=== PATIENT | female | born 1980 ===

== ENCOUNTER 2017-04-25 09:53 | Day surgery (SDC) | payer OTHER ==
[2017-04-09 09:42] VITALS: BMI 34.3
[2017-04-25 10:37] VITALS: O2SAT 100
[2017-04-25] MEDS ORDERED: Lactated Ringer's 1,000 ML IV ONE (17:30)
[2017-04-25] MEDS ORDERED: Propofol 10 mg/ml Inj (20 ML) ONE (17:36)
[2017-04-25] MEDS ORDERED: Midazolam 2 MG/2 ML VIAL ONE (17:36)
--- NOTE | 2017-04-25 18:02 | PCM.SURG1 ---
Surgeon's Initial Post Op Note - Surgeon's Notes Surgeon: Dr Murillo Manager Of School: Dr Guy Type of Anesthesia: General LMA Anesthesia Administered By: Dr. Guy Pre-Operative Diagnosis: 36 yo with Menorrhagia, Endometrial polyp Operative Findings: Av uterus with Endometrial Polyp Post-Operative Diagnosis: [place] as above Operation Performed: Hysteroscopy Myosure D and C Specimen/Specimens Removed: Polyp, EMC, ECC Estimated Blood Loss: EBL {In ML}: 10 Blood Products Given: N/A Drains Used: No Drains Post-Op Condition: Good Date of Surgery/Procedure: 04/25/17 Time of Surgery/Procedure: 18:02
[2017-04-25 18:57] VITALS: BP 110/68; RESP 17
[2017-04-25 19:24] VITALS: PULSE 68; TEMP 97.5
--- NOTE | 2017-04-25 19:35 | OP ---
PROCEDURE DATE: 04/25/2017 PREOPERATIVE DIAGNOSES: A 36-year-old female with an endometrial polyp, menorrhagia, irregular menst rual cycle. POSTOPERATIVE DIAGNOSES: A 36-year-old female with an endometrial polyp, menorrhagia, irregular mens trual cycle. PROCEDURE: Hysteroscopy, MyoSure, D and C. SURGEON: Dr. Murillo. ANESTHESIOLOGIST: Dr. Guy. TYPE OF ANESTHESIA: General LMA. FINDINGS: Anteverted uterus, approximately 10 weeks' gestation, noted to have endometrial polyp. COMPLICATIONS: None. ESTIMATED BLOOD LOSS: 10 mL. INS AND OUTS: 100 mL. URINE OUTPUT: 50 mL by straight catheterization. SPECIMEN: Polyp, EMC and ECC. PROCEDURE: The patient was informed of the risk factors, benefits, and alternatives of procedure. R isk factors included infection, bleeding, damage to surrounding organs and tissue, complication from anesthesia and possible . After informed consent was obtained, she was then taken to the operat ing room, prepped and draped in normal sterile fashion, placed in dorsal lithotomy position. A weigh tai speculum was placed into the vagina. The anterior lip of the cervix was grasped with a single-to oth tenaculum. The uterus was gently sounded to approximately 10 cm. Upon complete uterine dilation , the scope was then placed. A complete surveillance of the uterine cavity was then performed. In t hat particular incidence it was noted she had an endometrial polyp, which the MyoSure device was then placed and activated. Under direct visualization, the endometrial polyp was removed. Excellent hem ostasis was noted and submitted to pathology. Upon completion, all instruments were removed from the vagina. A fractional D and C was then performed. EMC and ECC were submitted to pathology. Excelle nt hemostasis. Instruments and lap count were correct x 2. The patient was then taken to recovery i n stable condition and instructed to follow up in the office in 2 weeks. Cheli Murillo MD cc: [id number] TT: 04/25/2017 19:34:21 jn
== END 2017-04-25 19:15 | disposition home or self-care (01) ==
LOC: C.SDS 09:53
PROVIDERS: ATTEND Obstetrics & Gynecology
DX: N84.0 Polyp of corpus uteri (principal); N92.0 Excessive and frequent menstruation with regular cycle
CPT/HCPCS: 57505; 58558; 88305; J1885; J2250; J2405; J2704; J3010; J7120